=== PATIENT | female | born 1975 | race Caucasian/White ===

== ENCOUNTER 2017-05-11 14:19 | Emergency (ER) | payer OTHER ==
[~2017-05-11 14:19] MED LIST: BACTRIM DS TABL1 TA1 PO; FLAGYL PO; IBUPROFEN600 MG PO; NAPROSYN500 MG PO; NO MEDICATIONS; PENICILLIN V P500 MG PO; TIGECYCLINE IV
[2017-05-11] MEDS ORDERED: NO MEDICATIONS (14:32)
== END 2017-05-11 15:41 | disposition home or self-care (01) ==
LOC: SED 14:19
DX: T40.1X1A Poisoning by heroin, accidental (unintentional), initial encounter (principal); F43.10 Post-traumatic stress disorder, unspecified; F17.210 Nicotine dependence, cigarettes, uncomplicated
CPT/HCPCS: 99284